=== PATIENT | female | born 1990 | race African-American/Black ===

== ENCOUNTER 2019-10-04 07:49 | Emergency (ER) | payer OTHER ==
[~2019-10-04] VITALS: Ht 157.5 cm; Wt 68.5 kg
[2019-10-04 07:58] VITALS: BP 107/67
[2019-10-04] MEDS ORDERED: ZYRTEC10 M5 PO (08:11)
[2019-10-04] MEDS ORDERED: PROAIR HFA8.5 GM INH (08:11)
[2019-10-04] MEDS ORDERED: NAPROSYN500 MG PO (08:25)
[2019-10-04] MEDS ORDERED: AMOXICILLIN 50500 M1 PO (08:25)
== END 2019-10-04 08:55 | disposition home or self-care (01) ==
LOC: ER 07:49
DX: K02.9 Dental caries, unspecified (principal); Z79.899 Other long term (current) drug therapy